=== PATIENT | male | born 1990 | race Caucasian/White ===

== ENCOUNTER 2020-10-18 07:47 | Emergency (ER) | payer OTHER, SELFPAY ==
[2020-10-18 07:49] VITALS: BP 141/86; PULSE 87; RESP 15; TEMP 36.7; O2SAT 98; BMI 31.5
--- NOTE | 2020-10-18 07:51 | ECG_ITS ---
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
--- NOTE | 2020-10-18 07:52 | XRR_ITS ---
PROCEDURE INFORMATION: Exam: XR Chest Exam date and time: 10/18/2020 7:52 AM Age: 30 years old Clinical indication: Dyspnea; Additional info: Dyspnea/cough TECHNIQUE: Imaging protocol: XR of the chest. Views: 1 view. COMPARISON: No relevant prior studies available. FINDINGS: Lungs: No CHF/pulmonary edema. Poor inspiration somewhat limits evaluation, especially of the lung bases. Visible lungs appear essentially clear. Pleural spaces: No visible pneumothorax. No definite pleural fluid. Heart/Mediastinum: Heart size is within normal limits. Bones/joints: No significant acute finding. XR/XR chest 1V portable [id number] IMPRESSION: 1. No definite pneumonia or CHF. 2. Other findings discussed above.
--- NOTE | 2020-10-18 07:52 | CTR_ITS ---
PROCEDURE INFORMATION: Exam: CT Head Without Contrast Exam date and time: 10/18/2020 7:52 AM Age: 30 years old Clinical indication: Altered mental status/memory loss; Confusion or disorientation; Additional info: Ams/ loc/seizure TECHNIQUE: Imaging protocol: Computed tomography of the head without contrast. Radiation optimization: All CT scans at this facility use at least one of these dose optimization techniques: automated exposure control; mA and/or kV adjustment per patient size (includes targeted exams where dose is matched to clinical indication); or iterative reconstruction. COMPARISON: No relevant prior studies available. RADIATION DOSE METRICS: Total DLP (mGy-cm): 1800.04 FINDINGS: Brain: No acute intracranial hemorrhage or mass effect. No definite acute infarct by CT. MRI could be more sensitive/specific for detection, as clinically directed. Cerebral ventricles: Ventricle size is normal for age. Paranasal sinuses: Included paranasal sinuses are essentially clear. Mastoid air cells: No significant acute finding. Bones/joints: No definite acute skull fracture. CT/CT head wo con* [id number] IMPRESSION: 1. No acute intracranial hemorrhage or mass effect. 2. No definite acute infarct by CT, see above. 3. Other findings discussed above. Radiation Dose CTDIVOL = (mGy): DLP = 1800.04 (mGy-cm)
--- NOTE | 2020-10-18 08:06 | ED_ITS ---
HPI - Seizure General: Chief Complaint: Seizure Stated Complaint: SEIZURE Time Seen by Provider: 10/18/20 07:51 History of Present Illness: HPI Narrative: 30-year-old male presents emergency room via EMS. Around 430 this morning the patient woke up onto the bathroom he evidently administered some medication to his one of his children. His woke up he had been having what looked like a seizure with tonic-clonic movements she reported that he was foaming at the mouth. EMS arrived they reported he had postictal be behavior was confused patient does remember anything after getting up and going to the bathroom getting his child medication he states when he woke up and became more aware he was in the ambulance and they were putting an IV in. Here he is awake and alert. He denies any recent illness no recent head trauma he is not on any blood thinners he takes [id number] Zyrtec and vitamins. He denies any recreational drug use. He is not used any energy drinks for the last couple of weeks. No personal history of seizures. MD complaint: possible seizure Onset (ago): minute(s) Description of Episode: loss of consciousness, tonic-clonic movement and post- event confusion Witnessed: Yes - by Bystander Trauma: No Seizure History: No Place: Home Associated symptoms: Deny no associated symptoms, chest pain, chills, confusion, cough, diaphoresis, fever(s), anorexia, malaise, rash, short of breath, syncope or weakness Treatments prior to arrival: none Review of Systems Const: Denies: fever(s), chills, malaise or diaphoresis ENMT: Denies: throat pain, ear or mastoid pain, nasal discharge or nasal congestion Card: Denies: chest pain or syncope Resp: Denies: dyspnea, productive cough or non-productive cough GI: Denies: abdominal pain, nausea, vomiting, hematemesis, coffee ground emesis, diarrhea, constipation, bloating, hematochezia or melena : Denies: flank pain, dysuria, urinary frequency or urinary urgency Skin/Breast: Denies: rash or pruritus Neuro: Denies: confusion Physical Exam Const: COMMON NORMALS: no acute distress GENERAL APPEARANCE: cooperative and comfortable ORIENTATION/CONSCIOUSNESS: Yes awake, Yes oriented to person, Yes oriented to place and Yes oriented to time HENMT: COMMON NORMALS: normocephalic, atraumatic, hearing grossly normal bilaterally, external ears normal, EAC's normal, TM's normal bilaterally and Normal nasal mucous membranes and turbinates present HEAD & SCALP: normocephalic and atraumatic NOSE: Normal nasal mucous membranes and turbinates present EXTERNAL EAR: Yes external ears normal EXTERNAL AUDITORY CANAL: EAC's normal TYMPANIC MEMBRANE: TM's normal bilaterally Eye: COMMON NORMALS: Equal, round and reactive pupils present, EOMs intact bilaterally, conjunctivae normal and no scleral icterus CONJUNCTIVA: Yes conjunctivae normal PUPIL: Yes Equal, round and reactive pupils present Neck/C-Spine: COMMON NORMALS: no JVD Lymph: LYMPHATIC: no lymphadenopathy noted and no lymphedema noted Resp: COMMON NORMALS: normal respiratory effort, No retractions, No use of accessory muscles and clear to auscultation bilaterally AUSCULTATION: clear to auscultation bilaterally Cardio: COMMON NORMALS: no JVD, regular rate, regular rhythm and No murmurs present (Cardio) RATE: regular rate RHYTHM: regular rhythm GI: COMMON NORMALS: Soft to palpation and No hepatosplenomegaly present AUSCULTATION: Yes normoactive bowel sounds PALPATION: Yes Soft to palpation, No Tenderness to palpation present (GI), No Guarding due to palpation present (GI) and Yes No hepatosplenomegaly present Extremity: COMMON NORMALS: normal to inspection, capillary refill normal, no clubbing, cyanosis or edema, no calf tenderness and no pedal edema Neuro: SENSORIUM/ORIENTATION: Yes oriented to person, Yes oriented to place and Yes oriented to time Skin: COMMON NORMALS: no rashes or lesions noted GENERAL SKIN EXAM: no rashes or lesions noted Course Vital Signs: Vital signs: Vital Signs Temperature 98.0 F 10/18/20 08:22 Pulse Rate 78 10/18/20 11:08 Respiratory Rate 15 10/18/20 11:08 Blood Pressure 132/78 10/18/20 11:08 Pulse Oximetry 98 10/18/20 11:08 MDM - Seizure MDM Narrative: Medical decision making narrative: Reviewed labs and imaging with the patient. At this point he is single seizure I do think he probably did have a seizure from what the described in a postictal phase EMS noted. 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 Lab Data: Labs: Lab Results 10/18/20 10/18/20 10/18/20 Range/Units 08:15 08:15 08:15 WBC 4.9 (4.0-10.0) 10^3/ uL RBC 5.28 (4.1-5.3) 10^6/u L Hgb 15.8 (11.7-16.6) g/dL Hct 47.2 (42.0-52.0) % MCV 89.4 (80-94) fl MCH 29.9 (28.0-34.0) pg MCHC 33.5 (30.0-36.0) g/dL RDW 12.2 (12.1-15.1) % Plt Count 200 (130-400) 10^3/c mm MPV 11.3 H (7.4-10.4) fL Neut % (Auto) 62.3 % Lymph % (Auto) 27.9 % Cassia % (Auto) 7.6 % Eos % (Auto) 1.0 % Baso % (Auto) 0.6 % Neut # (Auto) 3.03 (1.8-7.7) 10^3/u L Lymph # (Auto) 1.4 (0.8-4.8) 10^3/u L Cass[place] # (Auto) 0.4 (0.2-0.9) 10^3/u L Eos # (Auto) 0.1 (0.0-0.8) 10^3/u L Baso # (Auto) 0.0 (0.0-0.1) 10^3/u L Nucleated RBC % (a uto) 0 % Nucleated RBCs # 0.0 /100WBC Sodium 139 (136-145) mmol/L Potassium 4.4 (3.5-5.1) mmol/L Chloride 100 (98-107) mmol/L Carbon Dioxide 28 (22-29) mmol/L Anion Gap 15.4 (5-19) BUN 14 (6-20) mg/dL Creatinine 0.9 (0.7-1.2) mg/dL GFR Calculation 99.8 (90-130) mL/min Glucose 88 (65-115) mg/dL Calculated Osmolal ity 288 (285-295) mOsm/k g Calcium 9.5 (8.5-10.5) mg/dL Magnesium 2.2 (1.7-2.3) mg/dL Total Bilirubin 0.9 (0.15-1.2) mg/dL AST 24 (0-40) U/L ALT 34 (0-41) U/L Alkaline Phosphata se 50 (40-130) IU/L Creatine Kinase 145 (39-308) U/L Troponin T Gen 5 n g/L 6 (0-15) ng/L Total Protein 7.2 (6.6-8.7) g/dL Albumin 4.6 (3.5-5.2) g/dL Globulin 2.6 (1.3-4.6) g/dL Discharge Plan Discharge Patient Disposition: Home Clinical Impression: New onset seizure Condition: Stable Discharge Orders: Discharge ED (Routine); Ordered 10/18/20 Ordered By: Gonzalez Barber Discharge Diet: Usual diet Patient Instructions: Opioid Safety Activity Restrictions/Additional Instructions: Do not drive untill cleared. Case Management will call with appointments for EEG and Neurology. Coding Level of Care Code ED Manufacturing Development Engineer for Bailey Fwd Exam Comprehensive
[2020-10-18 08:22] VITALS: BP 144/68; RESP 15; TEMP 36.7; O2SAT 98
[2020-10-18 08:24] LABS: Basophils % 0.6 %; Eosinophils # 0.1 10^3/uL (0.0-0.8); Hematocrit 47.2 % (42.0-52.0); Hemoglobin 15.8 g/dL (11.7-16.6); Lymphocytes # 1.4 10^3/uL (0.8-4.8); Lymphocytes % 27.9 %; Mean Corpuscular HGB Conc 33.5 g/dL (30.0-36.0); Mean Corpuscular Hemoglobin 29.9 pg (28.0-34.0); Mean Corpuscular Volume 89.4 fl (80-94); Mean Platelet Volume 11.3 fL (7.4-10.4); Monocytes # 0.4 10^3/uL (0.2-0.9); Monocytes % 7.6 %; Neutrophils # 3.03 10^3/uL (1.8-7.7); Neutrophils % 62.3 %; Nucleated Red Blood Cells % 0 %; Platelet Count 200 10^3/cmm (130-400); Red Blood Count 5.28 10^6/uL (4.1-5.3); Red Cell Distribution Width 12.2 % (12.1-15.1); White Blood Count 4.9 10^3/uL (4.0-10.0)
[2020-10-18 08:42] LABS: Alanine Aminotransferase 34 U/L (0-41); Albumin Level 4.6 g/dL (3.5-5.2); Alkaline Phosphatase 50 IU/L (40-130); Anion Gap 15.4 (5-19); Aspartate Amino Transferase 24 U/L (0-40); Blood Urea Nitrogen 14 mg/dL (6-20); Calcium 9.5 mg/dL (8.5-10.5); Carbon Dioxide 28 mmol/L (22-29); Chloride 100 mmol/L (98-107); Creatine Phosphokinase 145 U/L (39-308); Globulin 2.6 g/dL (1.3-4.6); Glomerular Filtration Rate 99.8 mL/min (90-130); Glucose 88 mg/dL (65-115); Magnesium 2.2 mg/dL (1.7-2.3); Osmolality Calculated 288 mOsm/kg (285-295); Potassium 4.4 mmol/L (3.5-5.1); Sodium 139 mmol/L (136-145); Total Bilirubin 0.9 mg/dL (0.15-1.2); Total Protein 7.2 g/dL (6.6-8.7)
[2020-10-18 09:22] VITALS: BP 135/79; PULSE 71; RESP 19; O2SAT 98
[2020-10-18 10:00] VITALS: RESP 15
[2020-10-18 10:36] LABS: Troponin T (5th) Once 6 ng/L (0-15)
[2020-10-18 11:08] VITALS: BP 132/78; PULSE 78; RESP 15; O2SAT 98
--- NOTE | 2020-10-23 09:48 | DCPLANNER ---
Addendum entered by Amie Obregon 10/23/20 13:53: music manager faxed patients information to the clinic, and called to confirm that clinic received the information. Patients called rehabilitation caseworker stating that patient would like the EEG to be sent to a [facility]. Patients stated that she is asking Dr. Manzanares office to send the referral to a [facility]. Original Note: music manager had message to schedule an EEG for patient and a follow up appointment with neurology. Patients called rehabilitation caseworker, stating that patient wants to see Dr. Giles at [facility]. music manager faxed order for EEG to Dr. Manzanares office, for the results to be sent to Dr. Mendosa office. music manager faxed patients information to the office of Dr. Giles for the referral process to begin. Clinics will call patient with appointment information.
== END 2020-10-18 11:09 | disposition home or self-care (01) ==
PROVIDERS: Emergency Provider Family Medicine
DX: G40.89 Other seizures (principal)
CPT/HCPCS: 70450; 71045; 80053; 82550; 83735; 84484; 85025; 93005; 99283

== ENCOUNTER → 2023-05-18 14:30 | Outpatient (BNVA) | payer OTHER, SELFPAY | PROVIDERS: Referring Provider Family Medicine; Visit Provider Internal Medicine Cardiovascular Disease | DX: R00.1 Bradycardia, unspecified (principal) | CPT/HCPCS: 93225 ==

== ENCOUNTER 2024-04-25 15:05 | Emergency (ER) | payer OTHER, SELFPAY ==
[2024-04-25 15:07] VITALS: BP 158/78; PULSE 90; RESP 14; TEMP 36.4; O2SAT 96; BMI 27.3
--- NOTE | 2024-04-25 15:10 | XR_ITS ---
WS: [id number] Portable AP upright chest, 04/25/2024 Clinical Data: p Comparison: Portable chest, 10/18/2020 Findings: No nodules, masses or effusions are seen. The heart is normal. The pulmonary vascularity is not increased. No pneumonia or pneumothorax is seen. XR/XR chest 1V portable [id number] Impression: Negative chest.
--- NOTE | 2024-04-25 15:10 | ECG_ITS ---
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 Measurements Intervals [place] Rate: 77 P: 69 AR: 171 QRS: 82 QRSD: 109 T: 44 QT: 342 QTc: 388 Interpretive Statements SINUS RHYTHM WITH MARKED SINUS ARRHYTHMIA NONSPECIFIC T-WAVE ABNORMALITY Compared to ECG 10/18/2020 08:15:18 T-wave abnormality now present ST (T wave) deviation no longer present Early repolarization no longer present Electronically Signed On 04-27-2024 19:10:22 CDT by Uvaldo Lisa M.D. [email or web address] [id number]
[2024-04-25 16:08] LABS: Basophils % 0.4 %; Eosinophils % 0.2 %; Hematocrit 45.3 % (37-53); Lymphocytes # 0.8 10^3/uL (0.8-4.8); Lymphocytes % 14.8 %; Mean Corpuscular HGB Conc 34.4 g/dL (30-55); Mean Corpuscular Volume 89.9 fl (82-101); Mean Platelet Volume 10.8 fL (7.4-10.4); Monocytes # 0.3 10^3/uL (0.2-0.9); Monocytes % 5.5 %; Neutrophils # 4.26 10^3/uL (1.8-7.7); Neutrophils % 78.7 %; Nucleated Red Blood Cells % 0 %; Platelet Count 189 10^3/cmm (157-399); Red Blood Count 5.04 10^6/uL (3.85-5.65); Red Cell Distribution Width 12.4 % (12.1-15.1); White Blood Count 5.41 10^3/uL (3.29-11.43)
[2024-04-25 16:12] VITALS: PULSE 79; RESP 16; O2SAT 98
--- NOTE | 2024-04-25 16:12 | ED_ITS ---
HPI - Chest Pain 2 General: Chief Complaint: Chest Pain Stated Complaint: chest pain, high hr, facial tingling Time Seen by Provider: 04/25/24 16:05 Source: patient Mode of arrival: ambulatory Limitations: no limitations History of Present Illness: 33-year-old male states that he had had chest pain today after lunch. He states it was a sudden sharp pain he states it only lasted a few seconds since is resolved he states that since then though has had some numbness to his mouth and his extremities and had some palpitations earlier his heart rate is back to normal. He denies any shortness of breath denies any fever denies any vomiting. He states has been trying to cut weight and has been on GLP-1 for 2 weeks Associated symptoms: Reports palpitations; Deny abdominal pain, dyspnea, fever(s), nausea or vomiting Related Data Home Medications ?Medication ?Instructions ?Recorded ?Confirmed levetiracetam 500 mg tablet 500 mg PO BID 04/25/2402/07 testosterone cypionate 200 mg/mL 200 mg IM Q7D 5 04/25/24 intramuscular oil Allergies Allergy/AdvReac Type Severity Reaction Status Date / Time No Known Allergies Allergy Verified 04/25/24 15:16 Review of Systems 2 Const: Denies: fever(s), chills, body aches or change in appetite ENMT: Denies: throat pain or dental pain Card: Reports: chest pain and palpitations Resp: Denies: dyspnea GI: Denies: abdominal pain, nausea, vomiting or diarrhea Musc: Denies: neck pain or back pain Skin/Breast: Denies: rash Neuro: Denies: headache(s) Physical Exam 2 Const: COMMON NORMALS: no acute distress, patient oriented x3 and healthy appearing HENMT: COMMON NORMALS: normocephalic and atraumatic HEAD & SCALP: n ormocephalic and atraumatic Eye: COMMON NORMALS: conjunctivae normal CONJUNCTIVA: Yes conjunctivae normal Neck/C-Spine: COMMON NORMALS: full ROM and supple Chest: COMMONS NORMALS: normal inspection of the chest Resp: COMMON NORMALS: normal respiratory effort, No retractions, No use of accessory muscles and clear to auscultation bilaterally AUSCULTATION: clear to auscultation bilaterally Cardio: COMMON NORMALS: regular rate, regular rhythm and No murmurs present (Cardio) RATE: regular rate RHYTHM: regular rhythm GI: COMMON NORMALS: Normal to inspection, nondistended, normoactive bowel sounds present, Soft to palpation, non-tender and no masses PALPATION: Yes Soft to palpation Extremity: COMMON NORMALS: normal to inspection and full ROM Neuro: COMMON NORMALS: patient oriented x3, moves all extremities and no focal motor deficits Psych: COMMON NORMALS: mental status grossly normal, Normal thought process present and cooperative THOUGHT PROCESS: Normal thought process present Skin: COMMON NORMALS: no rashes or lesions noted and no wounds GENERAL SKIN EXAM: no rashes or lesions noted Course 2 Vital Signs: Vital signs: Vital Signs Temperature 97.5 F L 04/25/24 15:07 Pulse Rate 82 04/25/24 18:30 Respiratory Rate 12 04/25/24 17:00 Blood Pressure 119/56 04/25/24 18:30 Pulse Oximetry 99 04/25/24 18:30 Oxygen Delivery Me thod Room Air 04/25/24 18:30 MDM - Chest Pain Medical Decision Making Patient presents for chest pain is atypical in nature his blood work troponin D- dimer all negative he no signs of acute coronary syndrome he stable for discharge I did recommend him stopping the GLP-1 he is to follow-up with his PCP return if worsening he understands agrees to plan Medical Records I reviewed the patient's medical records. Lab Data I reviewed the patient's lab results. 04/25/24 15:35 04/25/24 15:35 Radiology Impressions Chest X-Ray 04/25/24 15:10 Impression: Negative chest. Laboratory Results WBC 5.41 10^3/uL (3.29-11.43) 04/25/24 15:35 RBC 5.04 10^6/uL (3.85-5.65) 04/25/24 15:35 Hgb 15.60 g/dL (11.27-16.99) 04/25/24 15:35 Hct 45.3 % (37-53) 04/25/24 15:35 MCV 89.9 fl (82-101) 04/25/24 15:35 MCH 31.0 pg (27-33) 04/25/24 15:35 MCHC 34.4 g/dL (30-55) 04/25/24 15:35 RDW 12.4 % (12.1-15.1) 04/25/24 15:35 Plt Count 189 10^3/cmm (157-399) 04/25/24 15:35 MPV 10.8 fL (7.4-10.4) H 04/25/24 15:35 Neut % (Auto) 78.7 % 04/25/24 15:35 Lymph % (Auto) 14.8 % 04/25/24 15:35 [place] % (Auto) 5.5 % 04/25/24 15:35 Eos % (Auto) 0.2 % 04/25/24 15:35 Baso % (Auto) 0.4 % 04/25/24 15:35 Neut # (Auto) 4.26 10^3/uL (1.8-7.7) 04/25/24 15:35 Lymph # (Auto) 0.8 10^3/uL (0.8-4.8) 04/25/24 15:35 [place] # (Auto) 0.3 10^3/uL (0.2-0.9) 04/25/24 15:35 Eos # (Auto) 0.0 10^3/uL (0.0-0.8) 04/25/24 15:35 Baso # (Auto) 0.0 10^3/uL (0.0-0.1) 04/25/24 15:35 Nucleated RBC % (auto) 0 % 04/25/24 15:35 Nucleated RBCs # 0.0 /100WBC 04/25/24 15:35 D-Dimer <= 0.27 ug/mLFEU (0-0.59) 04/25/24 15:35 Sodium 139 mmol/L (136-145) 04/25/24 15:35 Potassium 3.7 mmol/L (3.5-5.1) 04/25/24 15:35 Chloride 101 mmol/L (98-107) 04/25/24 15:35 Carbon Dioxide 26 mmol/L (22-29) 04/25/24 15:35 Anion Gap 15.7 (5-19) 04/25/24 15:35 BUN 21 mg/dL (6-20) H 04/25/24 15:35 Creatinine 0.9 mg/dL (0.7-1.2) 04/25/24 15:35 GFR Calculation 97.8 mL/min (90-130) 04/25/24 15:35 Glucose 94 mg/dL (65-115) 04/25/24 15:35 Calculated Osmolality 291 mOsm/kg (285-295) 04/25/24 15:35 Calcium 9.9 mg/dL (8.5-10.5) 04/25/24 15:35 Total Bilirubin 1.2 mg/dL (0.15-1.2) 04/25/24 15:35 AST 19 U/L (0-40) 04/25/24 15:35 ALT 18 U/L (0-41) 04/25/24 15:35 Alkaline Phosphatase 55 U/L (40-130) 04/25/24 15:35 Troponin T Baseline 9 ng/L (0-15) 04/25/24 15:35 Total Protein 7.3 g/dL (6.6-8.7) 04/25/24 15:35 Albumin 5.0 g/dL (3.5-5.2) 04/25/24 15:35 Globulin 2.3 g/dL (1.3-4.6) 04/25/24 15:35 Lipase 41 U/L (13-60) 04/25/24 15:35 All radiology interpretation(s) finalized by discharge EKG Data EKG 1: I personally reviewed and interpreted this EKG as follows: EKG interpretation date: 04/25/24 EKG interpretation time: 15:10 Interpretation: nsr hr [address] or t wave abnormalities qrs 109 qtc 374 EKG 2: I personally reviewed and interpreted this EKG as follows: EKG interpretation date: 04/25/24 EKG interpretation time: 16:44 Interpretation: nsr hr [address] elevation qrs 107 qtc 374 Discharge Plan Discharge Patient Disposition: Home Clinical Impression: Chest pain Condition: Stable Prescriptions: No Action levetiracetam 500 mg tablet 500 mg PO BID testosterone cypionate 200 mg/mL oil 200 mg IM Q7D Discharge Orders: Discharge ED (Routine); Ordered 04/25/24 Ordered By: Essie Vega Referrals: Nicolás Floyd MD [Primary Care Provider] - Discharge Diet: Advance as tolerated Discharge Activity: Resume usual activity Patient Instructions: Chest Pain (ED) Print Language: Citizen Of [place] Coding Level of Care Code ED Information Technology Security Analyst for Chg Fwada
[2024-04-25 16:37] LABS: Alanine Aminotransferase 18 U/L (0-41); Alkaline Phosphatase 55 U/L (40-130); Anion Gap 15.7 (5-19); Aspartate Amino Transferase 19 U/L (0-40); Blood Urea Nitrogen 21 mg/dL (6-20); Calcium 9.9 mg/dL (8.5-10.5); Carbon Dioxide 26 mmol/L (22-29); Chloride 101 mmol/L (98-107); Creatinine Clr Calc Pharmacy 126.6433; Globulin 2.3 g/dL (1.3-4.6); Glomerular Filtration Rate 97.8 mL/min (90-130); Glucose 94 mg/dL (65-115); Lipase 41 U/L (13-60); Osmolality Calculated 291 mOsm/kg (285-295); Potassium 3.7 mmol/L (3.5-5.1); Sodium 139 mmol/L (136-145); Total Bilirubin 1.2 mg/dL (0.15-1.2); Total Protein 7.3 g/dL (6.6-8.7)
[2024-04-25 16:51] LABS: Troponin(5th) Baseline 9 ng/L (0-15)
[2024-04-25 17:00] VITALS: BP 116/59; PULSE 84; RESP 12; O2SAT 98
--- NOTE | 2024-04-25 17:10 | ECG_ITS ---
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
--- NOTE | 2024-04-25 17:58 | PC.NURSE ---
Pt and bedside family member have voiced questions about what's going on and that no one has talked to us about what's happening. Pt and family member have been educated in regards to cardiac workup and waiting on lab results.
[2024-04-25 18:00] VITALS: BP 119/61; PULSE 71; O2SAT 98
[2024-04-25 18:30] VITALS: BP 119/56; PULSE 82; O2SAT 99
[2024-04-25 18:43] LABS: D Dimer <= 0.27 ug/mLFEU (0-0.59)
[2024-04-25 19:13] VITALS: BP 119/56; PULSE 86; O2SAT 99
== END 2024-04-25 18:53 | disposition home or self-care (01) ==
PROVIDERS: Emergency Provider Emergency Medicine; PCP Family Medicine
DX: R07.9 Chest pain, unspecified (principal)
CPT/HCPCS: 36415; 71045; 80053; 83690; 84484; 85025; 85378; 93005; 99285